=== PATIENT | male | born 1935 | race Caucasian/White ===

== ENCOUNTER 2019-05-06 10:44 | Emergency (ER) | payer MEDICARE, OTHER, SELFPAY ==
[2019-05-06 10:45] VITALS: BP 115/74; PULSE 120; RESP 20; TEMP 36.9; O2SAT 97
--- NOTE | 2019-05-06 10:57 | ED.ARRPALP ---
HPI - Arrhythmia/Palpitations General Chief Complaint: Arrhythmia/Palpitations Stated Complaint: afib Time Seen by Provider: 05/06/19 10:48 Source: patient Mode of arrival: Ambulatory Limitations: no limitations History of Present Illness HPI narrative: Patient is an 83-year-old male with history of atrial fibrillation on Tikosyn, Eliquis and Coreg presenting with atrial fibrillation. He was cardioverted 2 days ago in the ER at telling him as he states yesterday thinks to his apple what she noticed he went back into it. He denies any chest pain heart palpitation shortness of breath dizziness or lightheadedness. He came here today case he continues to be is in atrial fibrillation but remains asymptomatic. MD complaint: atrial fibrillation Related Data Home Medications Medication Instructions Recorded Confirmed ferrous sulfate [Feosol] 325 mg PO QPM #0 11/20/16 ascorbic acid (vitamin C) 500 mg PO QPM #0 01/21/17 lisinopril 2.5 mg PO BID #0 01/21/17 apixaban [Eliquis] 5 mg PO BID #0 09/17/17 Previous Rx's Medication Instructions Recorded triamcinolone acetonide 0.1 % TOPICAL QDAY #45 g 06/10/16 carvedilol [Coreg] 25 mg PO BID #180 tab 11/17/16 acetaminophen 0 mg PO Q4HP PRN #30 01/30/17 Allergies Allergy/AdvReac Type Severity Reaction Status Date / Time atorvastatin [ATORVASTATIN] AdvReac Intermediate MUSCLE Verified 05/06/19 11:09 ACHES Review of Systems Review of Systems Narrative: GENERAL: Denies chills, fatigue, malaise, fever, sweats, travel HEENT: Denies sinus pain, ear pain, sore throat, difficulty swallowing, neck pain RESPIRATORY: Denies dyspnea, cough, wheezing, hemoptysis, sputum. CARDIOVASCULAR:see hPI GASTROINTESTINAL: Denies nausea, vomiting, abdominal pain, diarrhea, constipation, melena. : Denies dysuria, frequency, incontinence, hematuria, urinary retention, flank pain. MUSCULOSKELETAL: Denies weakness, joint pain, or bony pain SKIN: No rash, no erythema, no pruritus NEUROLOGIC: Denies weakness, dizziness, headache, numbness, change in speech, confusion PSYCHIATRIC: No concerning psychosocial issues. 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) Hyperlipidemia (Acute) Primary osteoarthritis, right shoulder (Acute) Surgical History History of total replacement of right shoulder joint (Acute) Status post total replacement of left shoulder (Acute) Social History Smoking Status: Never smoker Exam Initial Vital Signs Initial Vital Signs: Vital Signs Temperature 98.5 F 05/06/19 10:45 Pulse Rate 120 H 05/06/19 10:45 Respiratory Rate 20 05/06/19 10:45 Blood Pressure 115/74 05/06/19 10:45 Pulse Oximetry 97 05/06/19 10:45 GENERAL: Alert pleasant well-appearing elderly male no acute distress HEENT: Head atraumatic,EOMI, pupils reactive, face symmetric CARDIOVASCULAR: Irregularly irregular not tachycardic no murmurs no rubs RESPIRATORY: Breath sounds equal bilaterally, no wheezes rales or rhonchi. ABDOMEN: Soft, nontender. Normoactive bowel sounds all 4 quadrants. No guarding or rebound. EXTREMITIES: Normal range of motion, no clubbing or edema. Neurovascularly intact NEUROLOGICAL: Alert and oriented x4.Normal gait and speech. Cranial nerves II through XII grossly intact. SKIN: Warm, dry, no laceration, no petechiae, no rashes or lesions. Course Orders Ordered: ED Orders 05/06/19 11:00 Complete Blood Count AUTO DIFF Stat Comprehensive Metabolic Panel Stat Magnesium Stat Partial Thromboplastin Time Stat Prothrombin Time INR Stat Thyroid Stimulating Hormone Stat Troponin & CK Cardiac Panel Stat 05/06/19 11:02 XR chest 1V Stat EKG-12 Lead Stat Discontinued Medications Sodium Chloride (Normal Saline 0.9%) 1,000 mls @ 150 mls/hr IV CONT GEORGIE Last Infusion: 05/06/19 13:51 Dose: 0 mls/hr Documented by: JUAN MIGUEL Admin: 05/06/19 11:10 Dose: 150 mls/hr Documented by: RSTONE Consultations Consultation #1: Dr. Rodriges, cardiology in telling him updated patient's symptoms test results. At this time no changes medication, recommend outpatient follow-up with his own industrial maintenance tech. Time: 13:17 Vital Signs Vital signs: Vital Signs - 8 hr 05/06/19 10:45 05/06/19 12:10 05/06/19 13:09 Temperature 98.5 F Pulse Rate 120 H 108 H 102 H Respiratory Rate 20 16 14 Blood Pressure 115/74 Blood Pressure [Left Arm] 98/61 101/68 Pulse Oximetry 97 98 98 05/06/19 13:30 Temperature Pulse Rate 109 H Respiratory Rate 18 Blood Pressure Blood Pressure [Left Arm] 108/70 Pulse Oximetry 98 MDM - Arrhythmia/Palpitations Lab Data Attestation: I reviewed the patient's lab results. Result diagrams: 05/06/19 11:00 05/06/19 11:00 Labs: Lab Results 05/06/19 05/06/19 05/06/19 Range/Units 11:00 11:00 11:00 WBC 9.7 (4.5-11.0) X10^3/uL RBC 4.30 L (4.5-5.9) X10^6/uL Hgb 13.3 L (13.5-17.5) g/dL Hct 39.0 L (41-53) % MCV 90.6 (80-100) fL MCH 30.9 (26-34) PG MCHC 34.1 (30-36) % RDW 13.5 (11.6-14.8) % Plt Count 249 (150-400) X10^3/uL Neut % (Auto) 60.4 (50-75) % Lymph % (Auto) 29.3 (25-40) % [place] % (Auto) 7.7 (3-14) % Eos % (Auto) 2.1 (2-4) % Baso % (Auto) 0.5 (0-2) % Neut # (Auto) 5900 (8326-6134) /uL Lymph # (Auto) 2800 (9257-0855) /uL [place] # (Auto) 700 (0-900) /uL Eos # (Auto) 200 (0-450) /uL Baso # (Auto) 100 (0-100) /uL PT 16.0 H (10.1-12.7) SECONDS INR 1.4 H (0.9-1.3) APTT 40 H (26.4-36.2) SECONDS Sodium 139 (137-145) mmol/L Potassium 4.3 (3.4-5.1) mmol/L Chloride 102 (98-107) mmol/L Carbon Dioxide 28 (22-32) mmol/L BUN 15 (9-20) mg/dL Creatinine 0.90 (0.66-1.25) mg/dL Estimated GFR > 60.0 (>60) mL/min BUN/Creatinine Ratio 16.7 (6-22) Glucose 112 H (80-110) mg/dL Calcium 9.6 (8.4-10.2) mg/dL Magnesium (1.6-2.3) mg/dL Total Bilirubin 0.6 (0.2-1.3) mg/dL AST 20 (17-59) IU/L ALT 12 (<50) IU/L Alkaline Phosphatase 84 (38-126) U/L Total Creatine Kinase (55-170) U/L CK-MB (CK-2) CK-MB (CK-2) Rel Index Troponin I (0.01-0.034) ng/mL Total Protein 7.5 (6.3-8.2) g/dL Albumin 4.4 (3.5-5.0) g/dL Globulin 3.1 (1.7-4.1) g/dL Albumin/Globulin Ratio 1.4 (1.0-2.8) TSH (0.47-4.68) uIU/mL 05/06/19 05/06/19 Range/Units 11:00 11:00 WBC (4.5-11.0) X10^3/uL RBC (4.5-5.9) X10^6/uL Hgb (13.5-17.5) g/dL Hct (41-53) % MCV (80-100) fL MCH (26-34) PG MCHC (30-36) % RDW (11.6-14.8) % Plt Count (150-400) X10^3/uL Neut % (Auto) (50-75) % Lymph % (Auto) (25-40) % [place] % (Auto) (3-14) % Eos % (Auto) (2-4) % Baso % (Auto) (0-2) % Neut # (Auto) (6895-5408) /uL Lymph # (Auto) (2902-5615) /uL [place] # (Auto) (0-900) /uL Eos # (Auto) (0-450) /uL Baso # (Auto) (0-100) /uL PT (10.1-12.7) SECONDS INR (0.9-1.3) APTT (26.4-36.2) SECONDS Sodium (137-145) mmol/L Potassium (3.4-5.1) mmol/L Chloride (98-107) mmol/L Carbon Dioxide (22-32) mmol/L BUN (9-20) mg/dL Creatinine (0.66-1.25) mg/dL Estimated GFR (>60) mL/min BUN/Creatinine Ratio (6-22) Glucose (80-110) mg/dL Calcium (8.4-10.2) mg/dL Magnesium 2.2 (1.6-2.3) mg/dL Total Bilirubin (0.2-1.3) mg/dL AST (17-59) IU/L ALT (<50) IU/L Alkaline Phosphatase (38-126) U/L Total Creatine Kinase 53 L (55-170) U/L CK-MB (CK-2) TNP CK-MB (CK-2) Rel Index TNP Troponin I < 0.012 (0.01-0.034) ng/mL Total Protein (6.3-8.2) g/dL Albumin (3.5-5.0) g/dL Globulin (1.7-4.1) g/dL Albumin/Globulin Ratio (1.0-2.8) TSH 2.82 (0.47-4.68) uIU/mL Imaging Data Chest x-ray: Radiologist's impression: PROCEDURE: XR CHEST 1V INDICATIONS: chest pain TECHNIQUE: One view of the chest was acquired. COMPARISON: CINDY Trejo, CHEST 2 VIEW, 12/10/2012, 17:03. FINDINGS: Surgical changes and devices: None. Lungs and pleura: Lungs are abnormal, with an interstitial prominence present bilaterally, to a greater degree than previously present. No pleural effusions or pneumothorax. Mediastinum: Mediastinal contours appear normal. Heart size is normal. Bones and chest wall: No suspicious bony lesions. Overlying soft tissues appear unremarkable. IMPRESSION: Increased interstitial prominence bilaterally, which could represent a mild degree of pulmonary edema superimposed on pre-existing interstitial prominence. No focal pneumonia found. Please correlate for mild acute CHF. Dictated by: Florencio Elizabeth M.D. on 05/06/2019 at 11:30 ECG Data Attestation: I personally reviewed and interpreted this ECG as follows: Prior ECG tracings: not available for review Interpretation: Atrial fibrillation with PVCs rate [address] elevations depressions or T-wave inversions MDM Narrative Medical decision making narrative: Patient overall remains asymptomatic is heart rate is controlled he sleeping resting comfortably is even hungry. Cardiology states at this time no changes in medications he is asymptomatic recommends outpatient follow-up, no need for intervention today. Discharge Plan Departure Patient Disposition: Home Clinical Impression: Chronic atrial fibrillation Discharge Date/Time: 05/06/19 13:55 Instructions: DI for Atrial Fibrillation Activity Restrictions/Additional Instructions: *You have been diagnosed with atrial fibrillation *What to do: At this time no need to change any of your medications. However it is very important he follow up with her industrial maintenance tech *Continue to take medications as directed *Follow up with your primary care provider in 2-[address] Obey christine office today or Thursday to schedule appointment as soon as possible *Return to ER if you should have chest pain heart palpitation shortness of breath dizziness lightheadedness or any new, worsening or concerning symptoms Prescriptions: No Action triamcinolone acetonide 0.1 % ointment 0.1 % Topical QDAY Qty: 45 RF: 0 carvedilol [Coreg] 25 MG tablet 25 mg PO BID Qty: 180 RF: 1 ferrous sulfate [Feosol] 325 MG tablet 325 mg PO QPM Qty: 0 RF: 0 lisinopril 5 MG tablet 2.5 mg PO BID Qty: 0 RF: 0 ascorbic acid (vitamin C) 500 MG tablet 500 mg PO QPM Qty: 0 RF: 0 acetaminophen 325 MG tablet 0 mg PO Q4HP PRNQty: 30 RF: 0 apixaban [Eliquis] 5 MG tablet 5 mg PO BID Qty: 0 RF: 0 Referrals: Yaron Guevara MD [Non-Staff] - Killian Perez MD [Primary Care Provider] -
--- NOTE | 2019-05-06 11:02 | DI.RAD.S_ITS ---
PROCEDURE: XR CHEST 1V INDICATIONS: chest pain TECHNIQUE: One view of the chest was acquired. COMPARISON: CINDY Trejo, CHEST 2 VIEW, 12/10/2012, 17:03. FINDINGS: Surgical changes and devices: None. Lungs and pleura: Lungs are abnormal, with an interstitial prominence present bilaterally, to a greater degree than previously present. No pleural effusions or pneumothorax. Mediastinum: Mediastinal contours appear normal. Heart size is normal. Bones and chest wall: No suspicious bony lesions. Overlying soft tissues appear unremarkable. IMPRESSION: Increased interstitial prominence bilaterally, which could represent a mild degree of pulmonary edema superimposed on pre-existing interstitial prominence. No focal pneumonia found. Please correlate for mild acute CHF. Dictated by: Florencio Elizabeth M.D. on 05/06/2019 at 11:30 Approved by: Florencio Elizabeth M.D. on 05/06/2019 at 11:30
[2019-05-06] MEDS: SODIUM CHLORIDE 0.9% 1,000 ML 150 ML IV (11:10)
[2019-05-06 11:11] LABS: Add Manual Diff / Slide Review NO; Basophils Absolute Auto 100 /uL (0-100); Basophils Percent Auto 0.5 % (0-2); Eosinophils Absolute Auto 200 /uL (0-450); Eosinophils Percent Auto 2.1 % (2-4); Hemoglobin 13.3 g/dL (13.5-17.5); Lymphocytes Absolute Auto 2800 /uL (1100-4500); Lymphocytes Percent Auto 29.3 % (25-40); Mean Corpuscular HGB Conc 34.1 % (30-36); Mean Corpuscular Hemoglobin 30.9 PG (26-34); Mean Corpuscular Volume 90.6 fL (80-100); Monocytes Absolute Auto 700 /uL (0-900); Monocytes Percent Auto 7.7 % (3-14); Neutrophils Absolute Auto 5900 /uL (1500-7000); Neutrophils Percent Auto 60.4 % (50-75); Platelet Count 249 X10^3/uL (150-400); Red Cell Distribution Width 13.5 % (11.6-14.8); White Blood Cell Count 9.7 X10^3/uL (4.5-11.0)
[2019-05-06 11:14] LABS: INR 1.4 (0.9-1.3)
[2019-05-06 11:17] LABS: PTT Partial Thromboplastin Tim 40 SECONDS (26.4-36.2)
[2019-05-06 11:19] LABS: Alanine Aminotransferase 12 IU/L (<50); Albumin 4.4 g/dL (3.5-5.0); Albumin Globulin Ratio 1.4 (1.0-2.8); Alkaline Phosphatase 84 U/L (38-126); Aspartate Aminotransferase 20 IU/L (17-59); BUN Creatinine Ratio 16.7 (6-22); Bilirubin Total 0.6 mg/dL (0.2-1.3); Blood Urea Nitrogen 15 mg/dL (9-20); Calcium 9.6 mg/dL (8.4-10.2); Carbon Dioxide 28 mmol/L (22-32); Chloride 102 mmol/L (98-107); Estimated Glomerular Filt Rate > 60.0 mL/min (>60); Globulin 3.1 g/dL (1.7-4.1); Glucose 112 mg/dL (80-110); HEMOLYSIS < 15 (0-50); Potassium 4.3 mmol/L (3.4-5.1); Sodium 139 mmol/L (137-145); Total Protein 7.5 g/dL (6.3-8.2)
[2019-05-06 11:20] LABS: Creatine Kinase 53 U/L (55-170); Magnesium 2.2 mg/dL (1.6-2.3)
[2019-05-06 11:31] LABS: Troponin I < 0.012 ng/mL (0.01-0.034)
[2019-05-06 12:03] LABS: Thyroid Stimulating Hormone 2.82 uIU/mL (0.47-4.68)
[2019-05-06 12:10] VITALS: BP 98/61; PULSE 108; RESP 16; O2SAT 98
[2019-05-06 13:09] VITALS: BP 101/68; PULSE 102; RESP 14; O2SAT 98
[2019-05-06 13:30] VITALS: BP 108/70; PULSE 109; RESP 18; O2SAT 98
== END 2019-05-06 13:55 | disposition home or self-care (01) ==
PROVIDERS: Emergency Provider Emergency Medicine; PCP Family Medicine
DX: I48.20 Chronic atrial fibrillation, unspecified (principal); Z79.01 Long term (current) use of anticoagulants
CPT/HCPCS: 36415; 71045; 80053; 82550; 83735; 84443; 84484; 85025; 85610; 85730; 93005; 96360; 96361; 99283; 99285